=== PATIENT | female | born 1970 | race Caucasian/White ===

== ENCOUNTER → 2024-06-01 12:54 | Outpatient (REF) | payer BC, SELFPAY | LOC: WDC 12:54 | PROVIDERS: ATTENDING PHYSICIAN Obstetrics & Gynecology Gynecologic Oncology; FAMILY PHYSICIAN Physician Assistant | DX: Z12.31 Encounter for screening mammogram for malignant neoplasm of breast (principal) | CPT/HCPCS: 77063; 77067 ==

== ENCOUNTER → 2024-06-10 08:08 | Outpatient (REF) | payer BC, SELFPAY | LOC: WDC 08:08 | PROVIDERS: ATTENDING PHYSICIAN Obstetrics & Gynecology Gynecologic Oncology; FAMILY PHYSICIAN Physician Assistant | DX: R92.8 Other abnormal and inconclusive findings on diagnostic imaging of breast (principal) | CPT/HCPCS: 76642 ==

== ENCOUNTER → 2025-02-27 16:16 | Outpatient (REF) | payer BC, SELFPAY | LOC: RAD 16:16 | PROVIDERS: ATTENDING PHYSICIAN Physician Assistant Surgical; FAMILY PHYSICIAN Physician Assistant | DX: C54.1 Malignant neoplasm of endometrium (principal); Z12.31 Encounter for screening mammogram for malignant neoplasm of breast | CPT/HCPCS: 71260; 74177; Q9967 ==